=== PATIENT | female | born 1955 | race Caucasian/White ===

== ENCOUNTER → 2021-06-03 | Outpatient (CLI) | payer BC ==
--- NOTE | 2021-06-03 16:25 | REP ---
INDICATION: PAIN COMPARISON: None. TECHNIQUE: AP, lateral, bilateral oblique views right 3rd toe. FINDINGS: There is a nondisplaced oblique fracture of the 3rd toe proximal phalanx. IMPRESSION: Nondisplaced oblique fracture through the 3rd toe proximal phalanx. <Electronically signed by Pablo Arcos > 06/03/21 [id number]
== END ==
LOC: M WUC 16:02
PROVIDERS: ATTEND Physician Assistant
DX: S92.514A Nondisplaced fracture of proximal phalanx of right lesser toe(s), initial encounter for closed fracture (principal); X58.XXXA Exposure to other specified factors, initial encounter; Y92.9 Unspecified place or not applicable